=== PATIENT | male | born 1995 | race American Indian/Alaskan Native ===

== ENCOUNTER 2017-02-12 11:46 | Emergency (ER) | payer SELFPAY ==
[2017-02-12 11:50] VITALS: BP 129/88; PULSE 78; RESP 18; TEMP 98.7; O2SAT 100
--- NOTE | 2017-02-12 13:04 | C.PDOC ---
History Of Present Illness 02/12/2017 Hipolito Castillo is a 22 year old male, who presents to the emergency department complaining of a left lump on his left collarbone that developed three days ago. Patient denies any fever, cough, rash, chest pain, shortness of breath, or recent travels. No other complaints were made. Time Seen by Provider: 02/12/17 12:12 Chief Complaint (Nursing): Abnormal Skin Integrity History Per: Patient History/Exam Limitations: no limitations Current Symptoms Are (Timing): Still Present Location Of Injury: Left: Chest (lump on collar bone area) Quality Of Symptoms: Swollen Recent travel outside of the [place]: No Past Medical History Reviewed: Historical Data, Nursing Documentation, Vital Signs Vital Signs: Last Vital Signs Temp 98.7 F 02/12/17 11:48 Pulse 78 02/12/17 11:48 Resp 18 02/12/17 11:48 BP 129/88 02/12/17 11:48 Pulse Ox 100 02/12/17 11:48 - Medical History PMH: Asthma Family History: States: Unknown Family Hx - Social History Hx Tobacco Use: No Hx Alcohol Use: Yes Hx Substance Use: No - Immunization History Hx Tetanus Toxoid Vaccination: Yes Hx Influenza Vaccination: Yes Hx Pneumococcal Vaccination: No Review Of Systems Constitutional: Negative for: Fever Cardiovascular: Negative for: Chest Pain Respiratory: Negative for: Cough, Shortness of Breath Musculoskeletal: Positive for: Other Skin: Positive for: Other (lump on left collarbone). Negative for: Rash Physical Exam - Physical Exam Appears: Well, Non-toxic, No Acute Distress Skin: Normal Color, Warm, Dry, Other Head: Atraumatic, Normacephalic Throat: Normal, No Erythema Neck: Normal ROM, Supple Lymphatic: Other (1cm soft non-tender freely movable lymph node on left side of collarbone) Neurological/Psych: Oriented x3, Normal Speech, Normal Motor, Normal Sensation ED Course And Treatment O2 Sat by Pulse Oximetry: 100 (room air) Pulse Ox Interpretation: Normal Medical Decision Making Medical Decision Makin02/12/2017 Progress Notes: Physical exam is suggestive of possible lymph node. There are currently no signs of cellulitis or infection. Patient was advised to follow up with PMD if symptoms continue or worsen. Patient is stable for discharge and all questions were answered. Disposition - Disposition Referrals: [facility] at [facility] [Outside] Disposition: HOME/ ROUTINE Additional Instructions: The lymph node looks normal at this time. If it becomes larger or last longer than a month follow up for further evaluation. Instructions: Lymphadenopathy (ED) Forms: [facility] (Cambodian) - Scribe Statement The provider has reviewed the documentation as recorded by the Scribe 02/12/2017 Scribe Attestation: Karmen Machado MD Scribe Attestation: All medical record entries made by the Scribe were at my direction and personally dictated by me. I have reviewed the chart and agree that the record accurately reflects my personal performance of the history, physical exam, medical decision making, and the department course for this patient. I have also personally directed, reviewed, and agree with the discharge instructions and disposition.
--- NOTE | 2017-02-12 14:06 | C.PDOC ---
History Of Present Illness 02/12/2017 22 year old male, who presents to the emergency department complaining of a left lump on his left collarbone that developed three days ago. Patient denies any fever, cough, rash, chest pain, shortness of breath, or recent travels. No other complaints were made. Time Seen by Provider: 02/12/17 12:12 Chief Complaint (Nursing): Abnormal Skin Integrity History Per: Patient History/Exam Limitations: no limitations Onset/Duration Of Symptoms: Days (3 days) Current Symptoms Are (Timing): Still Present Location Of Injury: Left: Chest (lump on left collarbone) Quality Of Symptoms: denies: Painful, Itching Pain Scale Rating Of: 0 Past Medical History Reviewed: Historical Data, Nursing Documentation, Vital Signs Vital Signs: Last Vital Signs Temp 98.7 F 02/12/17 11:48 Pulse 78 02/12/17 11:48 Resp 18 02/12/17 11:48 BP 129/88 02/12/17 11:48 Pulse Ox 100 02/12/17 14:07 - Medical History PMH: Asthma Family History: States: Unknown Family Hx - Social History Hx Tobacco Use: No Hx Alcohol Use: Yes Hx Substance Use: No - Immunization History Hx Tetanus Toxoid Vaccination: Yes Hx Influenza Vaccination: Yes Hx Pneumococcal Vaccination: No Review Of Systems Except As Marked, All Systems Reviewed And Found Negative. Constitutional: Negative for: Fever Cardiovascular: Negative for: Chest Pain Respiratory: Negative for: Cough, Shortness of Breath Skin: Positive for: Other (lump on left collarbone). Negative for: Rash Physical Exam - Physical Exam Appears: Well, Non-toxic, No Acute Distress Skin: Normal Color, Warm, Dry Head: Atraumatic, Normacephalic Eye(s): bilateral: Normal Inspection, PERRL, EOMI Oral Mucosa: Moist Throat: Normal, No Erythema, No Exudate Neck: Normal ROM, Supple Lymphatic: Other (1cm lymph node on left side of collarbone) Chest: Symmetrical, No Tenderness Cardiovascular: Rhythm Regular Respiratory: Normal Breath Sounds Neurological/Psych: Oriented x3, Normal Speech, Normal Motor Gait: Steady ED Course And Treatment O2 Sat by Pulse Oximetry: 100 (room air) Pulse Ox Interpretation: Normal Medical Decision Making Medical Decision Makin02/12/2017 Progress Notes: Physical exam suggest indication of 1cm lymph node on left side of collar bone. Currently there are no signs of infection, abscess, or erythema. Patient is stable for discharge and was advised to follow up with PMD if symptoms continue or worsen. Disposition - Disposition Referrals: [facility] at [facility] [Outside] Disposition: HOME/ ROUTINE Disposition Time: 12:30 Condition: GOOD Additional Instructions: The lymph node looks normal at this time. If it becomes larger or last longer than a month follow up for further evaluation. Instructions: Lymphadenopathy (ED) Forms: [employer] (Japanese) - Clinical Impression Clinical Impression: Lymphadenopathy - Scribe Statement The provider has reviewed the documentation as recorded by the Scribe 02/12/2017 Scribe Attestation: Karmen Machado MD Scribe Attestation: All medical record entries made by the Scribe were at my direction and personally dictated by me. I have reviewed the chart and agree that the record accurately reflects my personal performance of the history, physical exam, medical decision making, and the department course for this patient. I have also personally directed, reviewed, and agree with the discharge instructions and disposition.
== END 2017-02-12 13:08 | disposition home or self-care (01) ==
LOC: C.ER 11:46
DX: R59.1 Generalized enlarged lymph nodes (principal)

== ENCOUNTER 2018-03-15 02:53 | Emergency (ER) | payer OTHER ==
[2018-03-15] MEDS ORDERED: Sodium Chloride 0.9% 1,000 ML IV ONE (03:15)
[2018-03-15 03:19] LABS: URINE BILIRUBIN NEGATIVE (NEGATIVE); URINE BLOOD NEGATIVE (NEGATIVE); URINE CLARITY Clear (Clear); URINE COLOR Yellow (YELLOW); URINE GLUCOSE (UA) NORMAL (Normal); URINE LEUKOCYTE ESTERASE NEG Leu/uL (Negative); URINE PROTEIN NEGATIVE (NEGATIVE)
--- NOTE | 2018-03-15 03:20 | C.PDOC ---
History Of Present Illness 23 year old PMH asthma presents to the ED c/o nausea and vomiting that started tonight. Patient reports he went out to eat and think the food caused his symptoms. Patient states he ate fish tacos and buffalo wings at [employer]. Few hours later the patient began to feel nauseous and made himself vomit and felt some relief after it. Patient denies fever, chills, diarrhea, abdominal pain, dysuria, hematuria, rash. Time Seen by Provider: 03/15/18 03:07 Chief Complaint (Nursing): GI Problem History Per: Patient History/Exam Limitations: no limitations Onset/Duration Of Symptoms: Hrs Current Symptoms Are (Timing): Still Present Context: Food Location Of Pain/Discomfort: Diffuse Radiation Of Pain To:: None Quality Of Discomfort: "Pain" Associated Symptoms: Nausea, Vomiting. denies: Diarrhea, Loss Of Appetite, Urinary Symptoms Exacerbating Factors: Food Recent travel outside of the [place]: No Additional History Per: Patient Past Medical History Reviewed: Historical Data, Nursing Documentation, Vital Signs Vital Signs: Last Vital Signs Temp 97.7 F 03/15/18 03:00 Pulse 70 03/15/18 03:00 Resp 18 03/15/18 03:00 BP 129/79 03/15/18 03:00 Pulse Ox 98 03/15/18 03:00 - Medical History PMH: Asthma (asthma) Denies: Chronic Kidney Disease Surgical History: No Surg Hx Family History: States: Unknown Family Hx - Social History Hx Tobacco Use: No Hx Alcohol Use: Yes Hx Substance Use: No - Immunization History Hx Tetanus Toxoid Vaccination: Yes Hx Influenza Vaccination: No Hx Pneumococcal Vaccination: No Review Of Systems Constitutional: Negative for: Fever, Chills Respiratory: Negative for: Cough, Shortness of Breath Gastrointestinal: Positive for: Nausea, Vomiting, Abdominal Pain. Negative for: Diarrhea Genitourinary: Negative for: Dysuria, Hematuria Musculoskeletal: Negative for: Back Pain Skin: Negative for: Rash Physical Exam - Physical Exam Appears: Non-toxic, No Acute Distress Skin: Normal Color, Warm, Dry Head: Atraumatic, Normacephalic Eye(s): bilateral: Normal Inspection Oral Mucosa: Moist Neck: Normal ROM, Supple Chest: Symmetrical Cardiovascular: Rhythm Regular Respiratory: Normal Breath Sounds, No Rales, No Rhonchi, No Wheezing Gastrointestinal/Abdominal: Soft, No Tenderness, No Mass, No Distention, No Guarding, No Rebound, No Hernia, No Ascites Extremity: Normal ROM, No Tenderness, No Swelling Neurological/Psych: Oriented x3, Normal Speech, Normal Cognition Gait: Steady ED Course And Treatment - Laboratory Results Result Diagrams: 03/15/18 03:31 03/15/18 03:31 O2 Sat by Pulse Oximetry: 98 (ON RA) Pulse Ox Interpretation: Normal Medical Decision Making Medical Decision Making: Impression: nausea and vomiting Plan: * Labs * UA * Pepcid 20 mg IVP * IV fluids * Zofran 4 mg IVP On re-eval, patient resting comfortably in no distress. He has no fever and reports feeling better. Abdomen remains soft, and patient is tolerating PO. Patient feels comfortable going home. Patient will be discharged home. Disposition Counseled Patient/Family Regarding: Diagnosis, Need For Followup, Rx Given - Disposition Disposition: HOME/ ROUTINE Disposition Time: 04:00 Condition: GOOD Additional Instructions: Drink fluids to prevent dehydration. Take Zofran as prescribed. Try low-fat diet with increase in fluids such as sport drink, gelatin. Prescriptions: Ondansetron ODT [Zofran ODT] 1 odt PO BID PRN #6 odt PRN Reason: Nausea/Vomiting Instructions: Nausea and Vomiting, Adult (DC) Forms: [facility] (Georgian) - POA Present On Arrival: None - Clinical Impression Clinical Impression: Vomiting - PA / COMMISSIONS MANAGER / Resident Statement MD/DO has reviewed & agrees with the documentation as recorded. - Scribe Statement The provider has reviewed the documentation as recorded by the Scribe Ortiz Redding All medical record entries made by the Scribe were at my direction and personally dictated by me. I have reviewed the chart and agree that the record accurately reflects my personal performance of the history, physical exam, medical decision making, and the department course for this patient. I have also personally directed, reviewed, and agree with the discharge instructions and disposition.
[2018-03-15] MEDS ORDERED: Sodium Chloride 0.9% 1,000 ML ONE (03:30)
[2018-03-15 03:36] LABS: MEAN CORPUSCULAR HGB CONC 35.9 g/dL (33.0-37.0); RBC 4.87 Mil/uL (4.40-5.90); RED CELL DISTRIBUTION WIDTH 13.2 % (11.5-14.5)
[2018-03-15 03:43] LABS: MEAN CELL VOLUME 80.9 fL (80.0-94.0); MEAN PLATELET VOLUME 8.4 fL (7.2-11.7); WHITE BLOOD COUNT 11.6 K/uL (4.8-10.8)
[2018-03-15 03:45] LABS: HEMOGLOBIN 14.1 g/dL (12.0-18.0)
[2018-03-15 03:47] LABS: ALB/GLOB RATIO 1.6 (1.0-2.1); ALBUMIN 4.5 g/dL (3.5-5.0); ALT/SGPT 37 U/L (21-72); AST/SGOT 24 U/L (17-59); BLOOD UREA NITROGEN 12 mg/dL (9-20); CALCIUM 9.4 mg/dl (8.6-10.4); GFR NON-AFRICAN AMERICAN > 60; LIPASE 168 U/L (23-300)
[2018-03-15 04:12] VITALS: BP 102/68; PULSE 68; RESP 20; TEMP 97.8
[2018-03-15 04:20] VITALS: O2SAT 98
== END 2018-03-15 04:12 | disposition home or self-care (01) ==
LOC: C.ER 02:53
DX: R11.2 Nausea with vomiting, unspecified (principal)
CPT/HCPCS: 80053; 81001; 83690; 85027; 96361; 96374; 96375; 99285; J2405; J7030